=== PATIENT | female | born 1995 ===

== ENCOUNTER 2020-02-05 07:02 | Emergency (ER) ==
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
== END 2020-02-05 09:24 | disposition left against medical advice (07) ==
LOC: ER 07:02
DX: Z53.21 Procedure and treatment not carried out due to patient leaving prior to being seen by health care provider (principal)